=== PATIENT | male | born 1975 | race Caucasian/White ===

== ENCOUNTER → 2021-01-09 | Outpatient (CLI) | payer OTHER ==
[~2021-01-09] MED LIST: IBUP80TA PO; PROHANCE 279.3MG/ML 15ML VIAL As Ordered ONE; PROHANCE 279.3MG/ML 5ML VIAL As Ordered ONE
== END ==
LOC: M RAD 16:16
PROVIDERS: ATTEND Internal Medicine Medical Oncology
DX: C96.Z Other specified malignant neoplasms of lymphoid, hematopoietic and related tissue (principal); S83.282A Other tear of lateral meniscus, current injury, left knee, initial encounter; X58.XXXA Exposure to other specified factors, initial encounter; Y92.89 Other specified places as the place of occurrence of the external cause; Y93.89 Activity, other specified; Y99.8 Other external cause status
CPT/HCPCS: 73723; A9576

== ENCOUNTER → 2021-03-23 | Outpatient (CLI) | payer OTHER ==
[~2021-03-23] MED LIST changes: -IBUP80TA PO; +ISOVUE-370 76% 100ML VIAL As Ordered ONE; -PROHANCE 279.3MG/ML 15ML VIAL As Ordered ONE; -PROHANCE 279.3MG/ML 5ML VIAL As Ordered ONE
--- NOTE | 2021-03-23 10:45 | REPVR ---
PROCEDURE INFORMATION: Exam: CT Head Without And With Contrast Exam date and time: 03/23/2021 10:17 AM Age: 45 years old Clinical indication: Condition or disease; History of cancer (specify primary cancer site): ; Primary cancer: Lch; Prior surgery; Surgery date: 6+ months; Additional info: Unifocal langerhans-cell histiocytosis, PINA TECHNIQUE: Imaging protocol: Computed tomography of the head without and with intravenous contrast. Radiation optimization: All CT scans at this facility use at least one of these dose optimization techniques: automated exposure control; mA and/or kV adjustment per patient size (includes targeted exams where dose is matched to clinical indication); or iterative reconstruction. Contrast material: ISOVUE 370; Contrast volume: 75 ml; Contrast route: INTRAVENOUS (IV); COMPARISON: MRI BRAIN W/ W/O CONTRAST - OUTSIDE PRIOR 01/09/2016 7:50 AM FINDINGS: Brain: Status post left frontoparietal craniectomy with mesh repair. No acute intracranial abnormality. No mass, midline shift, or mass effect. No evidence of hemorrhage. No abnormal enhancement. Cerebral ventricles: No ventriculomegaly. Paranasal sinuses: Visualized sinuses are unremarkable. No fluid levels. Mastoid air cells: Visualized mastoid air cells are well aerated. Bones/joints: No acute fracture. No bony lesion. Left frontoparietal craniectomy with mesh repair. Soft tissues: Unremarkable. IMPRESSION: Status post left frontoparietal craniectomy with mesh repair. No acute intracranial abnormality. No mass, midline shift, or mass effect. No evidence of hemorrhage. No abnormal enhancement. No bony lesion. Electronically signed by: Lynn Varela On 03/23/2021 10:45:24 AM
== END ==
LOC: M RAD 10:01
PROVIDERS: ATTEND Psychiatry & Neurology Neurology
DX: C96.6 Unifocal Langerhans-cell histiocytosis (principal); R51.9 Headache, unspecified
CPT/HCPCS: 70470; Q9967

== ENCOUNTER 2021-07-03 08:59 | Emergency (ER) | payer OTHER ==
[~2021-07-03] VITALS: Ht 188 cm; Wt 88.9 kg
[2021-07-03] MEDS ORDERED: IBUP80TA PO (10:55)
[2021-07-03 11:00] VITALS: BP 117/66
== END 2021-07-03 11:12 | disposition home or self-care (01) ==
LOC: M ED 08:59
DX: I80.02 Phlebitis and thrombophlebitis of superficial vessels of left lower extremity (principal)

== ENCOUNTER 2021-08-09 08:34 | Emergency (ER) | payer OTHER ==
[~2021-08-09] VITALS: Ht 188 cm; Wt 92.2 kg
[~2021-08-09 08:34] MED LIST changes: +IBUP80TA PO; -ISOVUE-370 76% 100ML VIAL As Ordered ONE
[2021-08-09] MEDS ORDERED: ALBUTEROL 90 MCG/ACT 8GM HFA INHALER INH SCH (11:15)
[2021-08-09] MEDS ORDERED: BENZONATATE 100MG CAPSULE PO ONE (11:15)
[2021-08-09 11:40] LABS: BASO # 0.1 10^3/uL (0.0-0.2); BASO % 0.8 % (0.0-1.0); EOS # 0.2 10^3/uL (0.0-0.5); EOS % 2.5 % (0.0-3.0); HEMOGLOBIN 14.8 g/dl (13.5-17.5); LYMPH # 1.7 10^3/uL (1.5-5.0); LYMPH % 27.8 % (24.0-44.0); MEAN CORPUSCULAR HEMOGLOBIN 27.9 pg (27.0-33.0); MEAN CORPUSCULAR HGB CONC 32.9 g/dl (32.0-36.5); MEAN CORPUSCULAR VOLUME 84.9 fl (80.0-96.0); MONO # 0.5 10^3/uL (0.0-0.8); MONO % 7.9 % (2.0-8.0); NEUTROPHILS # 3.7 10^3/uL (1.5-8.5); NEUTROPHILS % 60.7 % (36.0-66.0); PLATELET COUNT, AUTOMATED 266 10^3/uL (150-450); WHITE BLOOD COUNT 6.1 10^3/uL (4.0-10.0)
[2021-08-09 12:00] LABS: ERYTHROCYTE SEDIMENTATION RATE 6 mm/hr (0-15)
[2021-08-09 12:06] LABS: BLOOD UREA NITROGEN 19 MG/DL (7-18); C REACTIVE PROTEIN QUANTITATIV 0.34 MG/DL (0.00-0.30); CARBON DIOXIDE LEVEL 28 MEQ/L (21-32); CHLORIDE LEVEL 111 MEQ/L (98-107); CREATININE FOR GFR 0.97 MG/DL (0.70-1.30); GLOMERULAR FILTRATION RATE > 60.0 (>60); GLUCOSE, FASTING 83 MG/DL (70-100); POTASSIUM SERUM 4.4 MEQ/L (3.5-5.1); SODIUM LEVEL 141 MEQ/L (136-145)
[2021-08-09 12:10] LABS: MB/CK RELATIVE INDEX 0.85 (< OR =4)
[2021-08-09] MEDS ORDERED: ISOVUE-370 76% 100ML VIAL As Ordered ONE (13:02)
[2021-08-09] MEDS ORDERED: APIXABAN 5 MG TAB (ELIQUIS) PO ONE (14:50)
[2021-08-09] MEDS ORDERED: ELIQ5TAB PO (14:53)
[2021-08-09 15:00] VITALS: BP 125/72
[2021-08-09 15:10] LABS: INR 0.96; PROTHROMBIN TIME 13.2 SECONDS (12.7-14.5)
[2021-08-09 15:11] LABS: PARTIAL THROMBOPLASTIN TIME 30.3 SECONDS (25.9-37.0)
== END 2021-08-09 15:06 | disposition home or self-care (01) ==
LOC: M ED 08:34
DX: J81.0 Acute pulmonary edema (principal); Z86.2 Personal history of diseases of the blood and blood-forming organs and certain disorders involving the immune mechanism; Z79.01 Long term (current) use of anticoagulants
CPT/HCPCS: 36415; 71046; 71275; 80048; 81240; 82550; 82553; 84311; 84484; 85025; 85300; 85301; 85303; 85305; 85379; 85610; 85652; 85730; 86140; 86147; 93005; 99284; Q9967

== ENCOUNTER 2021-08-14 15:06 | Emergency (ER) | payer OTHER ==
[~2021-08-14] VITALS: Ht 188 cm; Wt 86.0 kg
[~2021-08-14 15:06] MED LIST changes: +ELIQ5TAB PO
[2021-08-14 16:46] LABS: BASO # 0.1 10^3/uL (0.0-0.2); BASO % 0.9 % (0.0-1.0); EOS # 0.2 10^3/uL (0.0-0.5); EOS % 3.2 % (0.0-3.0); HEMATOCRIT 42.7 % (42.0-52.0); HEMOGLOBIN 14.2 g/dl (13.5-17.5); LYMPH # 2.3 10^3/uL (1.5-5.0); LYMPH % 33.2 % (24.0-44.0); MEAN CORPUSCULAR HEMOGLOBIN 28.2 pg (27.0-33.0); MEAN CORPUSCULAR HGB CONC 33.3 g/dl (32.0-36.5); MEAN CORPUSCULAR VOLUME 84.9 fl (80.0-96.0); MONO # 0.5 10^3/uL (0.0-0.8); MONO % 6.6 % (2.0-8.0); NEUTROPHILS # 3.8 10^3/uL (1.5-8.5); PLATELET COUNT, AUTOMATED 251 10^3/uL (150-450); RED BLOOD COUNT 5.03 10^6/uL (4.30-6.10); WHITE BLOOD COUNT 6.8 10^3/uL (4.0-10.0)
[2021-08-14 17:02] LABS: CK-MB VALUE MASS < 1.0 NG/ML (<3.6); CPK CREATINE PHOSPHOKINASE 59 U/L (39-308); MB/CK RELATIVE INDEX 1.69 (< OR =4)
[2021-08-14 17:07] LABS: ALBUMIN 3.6 GM/DL (3.2-5.2); ALT/SGPT 39 U/L (12-78); BILIRUBIN,DIRECT < 0.1 MG/DL (0.0-0.2); BILIRUBIN,TOTAL 0.2 MG/DL (0.2-1.0); BLOOD UREA NITROGEN 21 MG/DL (7-18); CALCIUM LEVEL 8.9 MG/DL (8.5-10.1); CARBON DIOXIDE LEVEL 29 MEQ/L (21-32); CHLORIDE LEVEL 110 MEQ/L (98-107); CREATININE FOR GFR 1.08 MG/DL (0.70-1.30); GLOMERULAR FILTRATION RATE > 60.0 (>60); GLUCOSE, FASTING 84 MG/DL (70-100); LIPASE 75 U/L (73-393); POTASSIUM SERUM 4.5 MEQ/L (3.5-5.1); SODIUM LEVEL 142 MEQ/L (136-145); TOTAL PROTEIN 6.6 GM/DL (6.4-8.2)
[2021-08-14] MEDS ORDERED: ISOVUE-370 76% 100ML VIAL As Ordered ONE (17:53)
[2021-08-14 18:17] LABS: MB/CK RELATIVE INDEX 2.04 (< OR =4)
[2021-08-14 19:12] VITALS: BP 124/65
== END 2021-08-14 19:54 | disposition home or self-care (01) ==
LOC: EDBD 15:06 → M ED 15:06
DX: I26.99 Other pulmonary embolism without acute cor pulmonale (principal); Z79.01 Long term (current) use of anticoagulants
CPT/HCPCS: 36415; 71275; 80048; 80076; 82550; 82553; 83690; 84439; 84443; 84484; 85025; 93005; 93041; 94760; 99285; Q9967

== ENCOUNTER 2022-03-19 21:39 | Emergency (ER) | payer OTHER ==
[~2022-03-19 21:39] MED LIST changes: +ALBU2TA PO; +FLUT1AER3 IH
[2022-03-19 22:18] LABS: BASO % 0.7 % (0.0-1.0); EOS # 0.2 10^3/uL (0.0-0.5); EOS % 3.3 % (0.0-3.0); HEMATOCRIT 44.4 % (42.0-52.0); HEMOGLOBIN 14.3 g/dl (13.5-17.5); LYMPH # 2.2 10^3/uL (1.5-5.0); LYMPH % 36.1 % (24.0-44.0); MEAN CORPUSCULAR HEMOGLOBIN 27.9 pg (27.0-33.0); MEAN CORPUSCULAR HGB CONC 32.2 g/dl (32.0-36.5); MEAN CORPUSCULAR VOLUME 86.5 fl (80.0-96.0); MONO # 0.5 10^3/uL (0.0-0.8); MONO % 8.2 % (2.0-8.0); NEUTROPHILS # 3.1 10^3/uL (1.5-8.5); NEUTROPHILS % 51.5 % (36.0-66.0); PLATELET COUNT, AUTOMATED 276 10^3/uL (150-450); RED BLOOD COUNT 5.13 10^6/uL (4.30-6.10)
[2022-03-19 22:39] LABS: CPK CREATINE PHOSPHOKINASE 82 U/L (39-308)
[2022-03-19 22:46] LABS: CALCIUM LEVEL 8.7 MG/DL (8.5-10.1); CREATININE FOR GFR 1.47 MG/DL (0.70-1.30); GLOMERULAR FILTRATION RATE 54.4 (>60); POTASSIUM SERUM 4.2 MEQ/L (3.5-5.1)
[2022-03-19] MEDS ORDERED: CYCL-707 PO (23:30)
[2022-03-20] MEDS ORDERED: NS 1,000 ML IV ONE (04:30)
[2022-03-20] MEDS ORDERED: ISOVUE-370 76% 100ML VIAL As Ordered ONE (04:41)
[2022-03-20 04:59] VITALS: BP 120/84
[2022-03-20] MEDS ORDERED: GI COCKTAIL 50ML BTL(HYOSCYAMINE/MAALOX/LIDOCAINE VISCOUS)(1:3:1) PO ONE (05:15)
[2022-03-20 05:32] LABS: CPK CREATINE PHOSPHOKINASE 75 U/L (39-308)
[2022-03-20] MEDS ORDERED: FAMO20TA PO (06:00)
== END 2022-03-20 06:05 | disposition home or self-care (01) ==
LOC: M ED 21:39
DX: R07.89 Other chest pain (principal); K30 Functional dyspepsia; J45.909 Unspecified asthma, uncomplicated; Z86.711 Personal history of pulmonary embolism; I51.7 Cardiomegaly; Z79.51 Long term (current) use of inhaled steroids; Z79.899 Other long term (current) drug therapy
CPT/HCPCS: 71046; 71275; 80048; 82550; 84484; 85025; 93005; 93041; 94760; 96374; 99284; Q9967

== ENCOUNTER → 2022-06-25 | Outpatient (CLI) | payer OTHER ==
[~2022-06-25] MED LIST changes: +CYCL-707 PO; +FAMO20TA PO
== END ==
LOC: M SLEEP 20:00
PROVIDERS: ATTEND Internal Medicine Pulmonary Disease
DX: G47.33 Obstructive sleep apnea (adult) (pediatric) (principal)

== ENCOUNTER 2022-07-18 10:45 | Day surgery (SDC) | payer OTHER ==
[~2022-07-18] VITALS: Ht 185.4 cm; Wt 92.5 kg
[~2022-07-18 10:45] MED LIST changes: +NS 1,000 ML IV ONE
[2022-07-18] MEDS ORDERED: propofoL 200 MG/20 ML VIAL As Ordered ONE ×3 (12:57→13:33)
[2022-07-18] MEDS ORDERED: LIDOCAINE 2% 100MG/5ML SDV (FOR ANES.) As Ordered ONE (12:57)
[2022-07-18 13:47] VITALS: BP 132/74
== END 2022-07-18 14:02 | disposition home or self-care (01) ==
LOC: M OPP 10:45
PROVIDERS: ATTEND Internal Medicine Gastroenterology
DX: Z12.11 Encounter for screening for malignant neoplasm of colon (principal); K64.0 First degree hemorrhoids; K22.89 Other specified disease of esophagus; G73.3 Myasthenic syndromes in other diseases classified elsewhere; J45.909 Unspecified asthma, uncomplicated; Z86.711 Personal history of pulmonary embolism; Z79.51 Long term (current) use of inhaled steroids; Z79.52 Long term (current) use of systemic steroids

== ENCOUNTER → 2022-08-13 | Outpatient (CLI) | payer OTHER ==
[~2022-08-13] MED LIST changes: -ALBU2TA PO; +ALBU2TAB13 PO; +METHACHOLINE KIT INH ONE; -NS 1,000 ML IV ONE
== END ==
LOC: M CARPUL 08-09 07:23
PROVIDERS: ATTEND Internal Medicine Pulmonary Disease
DX: J45.40 Moderate persistent asthma, uncomplicated (principal)
CPT/HCPCS: 94070; J7674

== ENCOUNTER → 2022-09-07 | Outpatient (CLI) | payer OTHER ==
[~2022-09-07] MED LIST changes: +FLUT1BLS3; +FLUT50SP17; -METHACHOLINE KIT INH ONE; +OMEP-173
== END ==
LOC: M SLEEP 20:00
PROVIDERS: ATTEND Internal Medicine Pulmonary Disease
DX: G47.33 Obstructive sleep apnea (adult) (pediatric) (principal)

== ENCOUNTER → 2022-11-02 | Outpatient (CLI) | payer OTHER ==
[~2022-11-02] MED LIST changes: +ISOVUE-370 76% 100ML VIAL As Ordered ONE
== END ==
LOC: M RAD 07:42
DX: M89.9 Disorder of bone, unspecified (principal); R93.0 Abnormal findings on diagnostic imaging of skull and head, not elsewhere classified
CPT/HCPCS: 70470; 78306; A9503; Q9967

== ENCOUNTER 2023-05-06 08:52 | Emergency (ER) | payer OTHER ==
[~2023-05-06] VITALS: Ht 188 cm; Wt 88.1 kg
[~2023-05-06 08:52] MED LIST changes: +ALBU8.5H INH; +ESSE250T PO; -FLUT1BLS3; +FLUT1BLS3 INH; -FLUT50SP17; +FLUTISP; -ISOVUE-370 76% 100ML VIAL As Ordered ONE; +KP F1200 PO; +VITA500C24 PO
[2023-05-06 08:54] VITALS: BP 154/75; TEMP 98.6; O2SAT 97
== END 2023-05-06 11:55 | disposition home or self-care (01) ==
LOC: M ED 08:52
DX: I80.01 Phlebitis and thrombophlebitis of superficial vessels of right lower extremity (principal); I83.93 Asymptomatic varicose veins of bilateral lower extremities; Z86.711 Personal history of pulmonary embolism; Z86.718 Personal history of other venous thrombosis and embolism; Z79.899 Other long term (current) drug therapy

== ENCOUNTER → 2023-07-25 | Outpatient (CLI) | payer OTHER ==
[~2023-07-25] MED LIST changes: +CYCL-707; +ELIQ2.5T PO; +MAG100TA PO; +XARE10TA PO
== END ==
LOC: M RAD 07:42
PROVIDERS: ATTEND Orthopaedic Surgery
DX: R22.31 Localized swelling, mass and lump, right upper limb (principal)